=== PATIENT | female | born 1980 ===

== ENCOUNTER 2021-06-01 11:11 | Emergency (ER) | payer OTHER, SELFPAY ==
--- NOTE | ~2021-06-01 | XR_ITS ---
EXAMINATION: XR ELBOW, LEFT CLINICAL INFORMATION: Pain COMPARISON: None TECHNIQUE: AP, lateral, and oblique views of the left elbow. FINDINGS: The bones and soft tissues are normal. No fracture or joint effusion. Alignment is anatomic. Joint spaces are maintained. XR/XR elbow LT 2V IMPRESSION: Normal left elbow.
--- NOTE | ~2021-06-01 | US_ITS ---
EXAMINATION: US VENOUS ULTRASOUND WITH DOPPLER LOWER EXTREMITY, LEFT CLINICAL INFORMATION: Swelling. Left calf pain. COMPARISON: None TECHNIQUE: Ultrasound of the deep veins is performed from the hip to the calf with compression sonography and color and pulse Doppler assessment. Spectral analysis with color-flow imaging is performed. FINDINGS: There is normal venous compression and respiratory variation and augmented flow. The visualized common femoral vein, superficial femoral vein, profunda femoral vein, popliteal vein, and the trifurcation region shows no evidence of deep venous thrombosis. There is no significant popliteal fossa cyst. The contralateral right common femoral vein is patent. US/US venous duplex LE LT IMPRESSION: No DVT demonstrated in the left lower extremity.
--- NOTE | ~2021-06-01 | XR_ITS ---
EXAMINATION: XR FOOT, LEFT CLINICAL INFORMATION: Pain COMPARISON: None TECHNIQUE: AP, lateral, and oblique views of the left foot. FINDINGS: There is no evidence of acute fracture or dislocation of the left foot. There is mild soft tissues swelling seen overlying the dorsum of the navicular cuneiform joint with what may be a small erosion or subchondral cyst about the dorsum of the navicular. Small calcaneal spurs noted site of insertion of the Achilles tendon. There is some mild degenerative sclerosis and spurring about the talonavicular joint. XR/XR foot LT min 3V IMPRESSION: Mild degenerative change of the tarsal bones with mild soft tissue swelling seen overlying the region adjacent to erosions or subchondral cyst involving the dorsal aspect of the navicular. Small Achilles calcaneal spur.
[2021-06-01 12:45] VITALS: BP 142/85; PULSE 78; RESP 19; TEMP 36.1; O2SAT 99; BMI 24.5
--- NOTE | 2021-06-01 15:32 | ED_ITS ---
HPI - Extremity Problem General Chief complaint: Extremity Injury, Upper Stated complaint: Swollen l ankle/ l arm pain Time Seen by Provider: 06/01/21 15:00 Source: patient Mode of arrival: ambulatory Limitations: no limitations History of Present Illness HPI Narrative: 41-year-old female presenting to the emergency department with left calf, ankle / foot pain and left elbow pain x2 weeks. Patient denies any trauma to these extremities. She tells me that her left elbow pain feels like her typical tennis elbow, she has a history of it at times it becomes inflamed and bothers her. She tells me that she has been experiencing swelling to her left lower extremity and pain. She tells me she is currently on Depo-Provera. She denies long flights, or travel. She tells me that the pain is intermittent in nature and she describes as a dull aching pain to the left lower extremity. She denies shortness of breath, chest pain, nausea, vomiting, abdominal pain, headache, vision changes, dizziness. No history of DVT or PE. No recent hospitalization or illness. MD Complaint: extremity pain and extremity swelling Onset (ago): week(s) (2) Pain Consistency: intermittent Location: left Quality: aching and dull Radiation: none Relieving factors: nothing Exacerbating factors: nothing Associated symptoms: denies other symptoms Related Data Previous Rx's Medication Instructions Recorded cyclobenzaprine 10 mg tablet 10 mg PO BEDTIME PRN #7 tab 06/01/21 prednisone 20 mg tablet 40 mg PO DAILY 5 Days #10 tab 06/01/21 Allergies Allergy/AdvReac Type Severity Reaction Status Date / Time ibuprofen [From MOTRIN] Allergy Unknown HIVES Unverified 01/29/20 15:56 shrimp Allergy Unknown SWELLING Unverified 01/29/20 15:56 Motrin Allergy Unknown Uncoded 09/28/11 00:00 Review of Systems Verdana 4l Review of Systems: Verdana 4d Verdana 4d Constitutional : No Weight loss, No Fever, No Chills, No Fatigue, No Malaise ENT/Mouth : No sore throat, No Rhinorrhea Eyes: No Eye Pain, No Swelling, No Redness Cardiovascular : No Chest Pain, No SOB, No Dyspnea on Exertion, No OrthopneaOrthopnea, No Edema, No Palpitations Respiratory : No Cough, No Sputum, No Wheezing Gastrointestinal : No Nausea, No Vomiting, No Diarrhea, No Constipation, No abdominal Pain, No Hematochezia, No Melena Genitourinary : No Dysuria, No Urinary Frequency, No Hematuria, Musculoskeletal : + joint pain, No Myalgias, + Joint Swelling Skin : No Skin Lesions, No rash Neuro : No Weakness, No Numbness, No Dizziness, No Headache All other systems reviewed and are negative Yes all other systems are reviewed and are negative [facility] Social History Social History Advance Directives: No Advance Directives Information Provided: Yes Patient : No Physical Exam Verdana 4l Vital Signs: Verdana 4d Verdana 4d Vital Signs: Verdana 4d Verdana 4Bd Last Vital Signs Verdana 4d R And D Lab Technician New 4d R And D Lab Technician New 4d Temp 97 F 06/01/21 12:45 R And D Lab Technician New 4d Pulse 78 06/01/21 12:45 R And D Lab Technician NewNew 4d Resp 19 06/01/21 12:45 BP 142/85 H 06/01/21 12:45 Pulse Ox 99 06/01/21 12:45 BMI result Body Mass Index 24.5 VSS Appearance: Alert.? Oriented X3.? No acute distress.? Head: Normocephalic, atraumatic, no step-offs or deformities Eyes: Pupils equal, round and reactive to light.? ENT: Pharynx normal.? Neck: Normal inspection.? Neck supple.? CVS: Normal heart rate and rhythm.? Pulses normal.? Respiratory: No respiratory distress.? Breath sounds normal.? Abdomen: Soft and nontender.? Skin: Skin warm and dry.? Normal skin color.? Normal skin turgor.? Extremities:+ swelling to LLE. Normal RLE.? No calf ttp. 5/5 strength to bilateral upper and lower extremities w/ full ROM, no point tenderness. Back: No midline tenderness, no C-spine tenderness, full range of motion, no CVA tenderness bilaterally Neuro: Oriented X 3.? No motor deficit.? No sensory deficit. Course Reevaluation(s) Reevaluation #1: X-ray of left elbow negative. X-ray of left foot significant for subchondral cyst. Ultrasound of the left lower extremity without DVT. Unlikley septic joint Swelling likely secondary to arthritis. Another differential includes gout. I will discharge patient home with NSAIDs, steroids and muscle relaxers. Time: 16:04 MDM - Extremity (Nontraumatic) MDM Narrative Medical decision making narrative: 1537 41 yo f no significant pmhx presents with L elbow pain, and LLE pain and swelling X1 week PE swelling to LLE Plan- US of LLE r/o DVT, xray. PE unlikley - No hypoxia, tachycardia, tachypnea or shortness of breath. Imaging Data Venous US: Attestation: I personally reviewed and interpreted this imaging study as follows: Radiologist's impression: FINDINGS: There is normal venous compression and respiratory variation and augmented flow. The visualized common femoral vein, superficial femoral vein, profunda femoral vein, popliteal vein, and the trifurcation region shows no evidence of deep venous thrombosis. ? There is no significant popliteal fossa cyst. The contralateral right common femoral vein is patent. US/US venous duplex LE LT IMPRESSION: No DVT demonstrated in the left lower extremity. Critical Care Time Critical Care Time Critical Care Time: No Discharge Plan Discharge Clinical Impression: Arthritis, Subchondral cyst, Left tennis elbow Patient Disposition: Home, Self-Care Instructions: Swollen Ankle Joint (ED) Additional Instructions: Take your medications as prescribed. If you were prescribed antibiotics today, it is important that you take your medication to their entirety, do not skip any doses, do not finish them early. Follow-up with your primary care provider this week. Take ibuprofen every 6 hours, Tylenol every 4 as needed for pain. Return to the emergency department with new or worsening symptoms. In case of emergency call 911 Prescriptions: New cyclobenzaprine 10 mg tablet 10 mg PO BEDTIME PRN (Reason: muscle spasm) Qty: 7 RF: 0 prednisone 20 mg tablet 40 mg PO DAILY 5 Days Qty: 10 RF: 0 Referrals: Physician,None [Primary Care Provider] - 2 days Stand Alone Forms: Work/School Release
== END 2021-06-01 16:22 | disposition home or self-care (01) ==
PROVIDERS: Emergency Provider Emergency Medicine
DX: M77.12 Lateral epicondylitis, left elbow (principal); M79.672 Pain in left foot; M25.522 Pain in left elbow; R60.0 Localized edema; Z79.899 Other long term (current) drug therapy
CPT/HCPCS: 73070; 73630; 93971; 99283; 99284

== ENCOUNTER 2021-09-08 07:26 | Emergency (ER) | payer OTHER, SELFPAY ==
[2021-09-08 07:30] VITALS: BP 110/72; PULSE 90; RESP 20; TEMP 37.2; O2SAT 98; BMI 24.9
[2021-09-08 08:00] VITALS: BP 110/72; PULSE 90; RESP 20; TEMP 37.2; O2SAT 98
--- NOTE | 2021-09-08 08:00 | ED_ITS ---
HPI - Nausea/Vomiting/Diarrhea General Chief complaint: General Medical Stated complaint: covid + fever vomiting Time Seen by Provider: 09/08/21 07:58 Source: patient Mode of arrival: ambulatory Limitations: no limitations History of Present Illness MD elicited complaint: nausea, vomiting, diarrhea and other (dizziness, weaknes s, feels fatigued - had fevers at the beginning of the weak) Pertinent past history: other (unvaccinated) Onset (ago): day(s) (6) Description of vomiting: watery and bilious Associated nausea: Yes Associated abdominal pain: No Location of pain: other (has body aches) Pain consistency: intermittent Severity: moderate Quality: aching and dull Exacerbating factors: eating and movement Relieving factors: none Context: other (symptoms of COVID started Sunday AM, test Sunday was positive) Associated symptoms: myalgias, fever/chills, loss of appetite, malaise, nausea/vomiting, weakness and fatigue Related Data Previous Rx's Medication Instructions Recorded cyclobenzaprine 10 mg tablet 10 mg PO BEDTIME PRN #7 tab 06/01/21 prednisone 20 mg tablet 40 mg PO DAILY 5 Days #10 tab 06/01/21 ondansetron 4 mg disintegrating 4 mg PO Q8H PRN #20 tab 09/08/21 tablet Allergies Allergy/AdvReac Type Severity Reaction Status Date / Time ibuprofen [From MOTRIN] Allergy Unknown HIVES Unverified 01/29/20 15:56 shrimp Allergy Unknown SWELLING Unverified 01/29/20 15:56 Motrin Allergy Unknown Uncoded 09/28/11 00:00 Review of Systems Review of Systems: Constitutional : No Weight loss, pos Fever, pos Chills ENT/Mouth : No sore throat, No Rhinorrhea Eyes: No Swelling, No Redness Cardiovascular : No Chest Pain, No SOB, NoEdema Respiratory : No Cough, No Sputum, No Wheezing Gastrointestinal : Positive Nausea, Positive Vomiting, positive Diarrhea, no abdominal Pain, No Hematochezia, No Melena Genitourinary : No Dysuria, No Urinary Frequency, No Hematuria, No Urgency Musculoskeletal : No joint pain, No Myalgias, No Joint Swelling Skin : No Skin Lesions, No rash Neuro : pos Weakness, No Numbness, pos Dizziness, No Headache Psych : No Anxiety/Panic, No Depression Heme/Lymph: No Bruising, No Lymphadenopathy Endocrine : No Polyuria, No Polydipsia All other systems reviewed and are negative. Gastrointestinal: Gastrointestinal: Reports nausea PMFSH Past Medical History Attestation statement: The following information was validated with the patient. Medical History No known health problems Social History Social History (Updated 09/08/21 @ 08:20 by Balbina Ledbetter DO) Patient Tobacco Use Status: Never used Tobacco Smoked in Last 30 Days: No Use of substances other than those prescribed or required for medical reasons: No Advance Directives: No Advance Directives Information Provided: No Patient : No Physical Exam Vital Signs: Vital Signs: Last Vital Signs Temp 98.4 F 09/08/21 08:19 Pulse 82 09/08/21 08:19 Resp 18 09/08/21 08:19 BP 110/80 09/08/21 08:19 Pulse Ox 99 09/08/21 08:19 BMI result Body Mass Index 24.9 Appearance: Alert. Oriented X3. No acute distress. Eyes: Pupils equal, round and reactive to light. ENT: Pharynx mildly dry MM Neck: Normal inspection. Neck supple. CVS: Normal heart rate and rhythm. Pulses normal. Respiratory: No respiratory distress. Breath sounds normal. Abdomen: Soft and nontender. Skin: Skin warm and dry. Normal skin color. mild skin turgor. Extremities: No lower extremity edema. No calf ttp Neuro: Oriented X 3. No motor deficit. No sensory deficit. Course Course Course Narrative: tolerating PO labs stable does not meet criteria for gothams - no risk factors healthy day 6 of symptoms mild bump in LFTs likely viral MDM - Nausea/Vomiting/Diarrhea MDM Narrative Medical decision making narrative: 41 yo female with no PMH here unvaccinated COVID symptoms started Sunday - tested positive on Sunday has had fevers, chills, body aches, n/v/d - she cannot keep anything down and feels weak and dizzy. She will need labs, IVF x 2L, zofran and COVID/flu testing. Dispo per results and improvement. Will review gothams form for any treatment but she is at day 6 of symptoms. Lab Data Result diagrams: 09/08/21 08:25 09/08/21 08:25 Labs: Lab Results 04/09/08/21 09/08/21 Range/Units 08:22 08:22 08:25 WBC 4.7 L (4.8-10.8) X10*3/uL RBC 4.54 (4.20-5.50) X10*6/uL Hgb 14.1 (12.0-16.0) g/dl Hct 41.3 (37.0-47.0) % MCV 91.0 (80.0-98.0) fL MCH 31.1 (27.0-33.0) pg MCHC 34.1 (31.0-35.0) g/dl RDW 13.3 (11.0-16.0) % Plt Count 281 (160-400) X10*3/uL MPV 9.7 (9.4-12.3) fL Immature Gran % (Auto) Cancelled Neut % (Auto) Cancelled Lymph % (Auto) Cancelled [place] % (Auto) Cancelled Eos % (Auto) Cancelled Baso % (Auto) Cancelled Lymph # (Auto) Cancelled [place] # (Auto) Cancelled Eos # (Auto) Cancelled Baso # (Auto) Cancelled Abs Immat Gran (auto) Cancelled Absolute Neuts (auto) Cancelled Absolute Nucleated RBC 0.000 (0.0-0.012) X10*3/uL Nucleated RBC % (auto) 0.0 (0.0-0.2) /100WBC Neutrophils % (Manual) 69 (45-73) % Band Neutrophils % 3 (3-5) % Lymphocytes % (Manual) 19 L (20-40) % Atypical Lymphs % (Man) 3 (0-6) % Monocytes % (Manual) 6 (2-11) % Abs Neuts (Manual) 3.4 (2.0-8.3) X10*3/uL Lymphocytes # (Manual) 0.9 L (1.2-4.9) X10*3/uL Atyp Lymphs # (Manual) 0.1 x10*3/uL Monocytes # (Manual) 0.3 (0.1-1.2) X10*3/uL Platelet Estimate NORMAL (NORMAL) Plt Morphology Comment NORMAL RBC Morphology NORMAL Sodium (135-145) mmol/L Potassium (3.3-5.1) mmol/L Chloride (96-108) mmol/L Carbon Dioxide (22-29) mmol/L Anion Gap (12-20) BUN (9-16) mg/dL Creatinine (0.5-1.4) mg/dL Estim Creat Clear Calc Estimated GFR Random Glucose (60-115) mg/dL Calcium (8.4-10.2) mg/dL Magnesium (1.6-2.6) mg/dL Total Bilirubin (0.0-1.0) mg/dL Direct Bilirubin (0.0-0.5) mg/dL AST (5-31) U/L ALT (0-31) U/L Alkaline Phosphatase (39-117) U/L Total Protein (6.5-8.0) g/dL Albumin (3.5-5.0) g/dL Lipase (8-78) U/L Beta HCG, Quant mIU/mL COVID-19 (NIDIA) Positive A (Negative) COVID-19 Clin Com See Note Influenza Type A (FIORELLA) Negative (Negative) Influenza Type B (FIORELLA) Negative (Negative) Influenza A & B Note See Note 09/08/21 Range/Units 08:25 WBC (4.8-10.8) X10*3/uL RBC (4.20-5.50) X10*6/uL Hgb (12.0-16.0) g/dl Hct (37.0-47.0) % MCV (80.0-98.0) fL MCH (27.0-33.0) pg MCHC (31.0-35.0) g/dl RDW (11.0-16.0) % Plt Count (160-400) X10*3/uL MPV (9.4-12.3) fL Immature Gran % (Auto) Neut % (Auto) Lymph % (Auto) [place] % (Auto) Eos % (Auto) Baso % (Auto) Lymph # (Auto) [place] # (Auto) Eos # (Auto) Baso # (Auto) Abs Immat Gran (auto) Absolute Neuts (auto) Absolute Nucleated RBC (0.0-0.012) X10*3/uL Nucleated RBC % (auto) (0.0-0.2) /100WBC Neutrophils % (Manual) (45-73) % Band Neutrophils % (3-5) % Lymphocytes % (Manual) (20-40) % Atypical Lymphs % (Man) (0-6) % Monocytes % (Manual) (2-11) % Abs Neuts (Manual) (2.0-8.3) X10*3/uL Lymphocytes # (Manual) (1.2-4.9) X10*3/uL Atyp Lymphs # (Manual) x10*3/uL Monocytes # (Manual) (0.1-1.2) X10*3/uL Platelet Estimate (NORMAL) Plt Morphology Comment RBC Morphology Sodium 142 (135-145) mmol/L Potassium 3.7 (3.3-5.1) mmol/L Chloride 107 (96-108) mmol/L Carbon Dioxide 24 (22-29) mmol/L Anion Gap 15 (12-20) BUN 14 (9-16) mg/dL Creatinine 0.89 (0.5-1.4) mg/dL Estim Creat Clear Calc 77.6 Estimated GFR > 60 Random Glucose 124 H (60-115) mg/dL Calcium 9.0 (8.4-10.2) mg/dL Magnesium 1.9 (1.6-2.6) mg/dL Total Bilirubin 0.7 (0.0-1.0) mg/dL Direct Bilirubin 0.5 (0.0-0.5) mg/dL AST 81 H (5-31) U/L ALT 83 H (0-31) U/L Alkaline Phosphatase 65 (39-117) U/L Total Protein 7.0 (6.5-8.0) g/dL Albumin 3.9 (3.5-5.0) g/dL Lipase 55 (8-78) U/L Beta HCG, Quant < 2 mIU/mL COVID-19 (INDIA) (Negative) COVID-19 Clin Com Influenza Type A (FIORELLA) (Negative) Influenza Type B (FIORELLA) (Negative) Influenza A & B Note Discharge Plan Discharge Clinical Impression: COVID-19, Elevated liver function tests Patient Disposition: Home, Self-Care Instructions: COVID-19 (Coronavirus Disease 2019) (ED) Additional Instructions: return to ED for any worsening symptoms or concerns drink plenty of fluids minor increase in liver enzymes likely related to COVID - this does happen repeat with your doctor in 1 week Prescriptions: New ondansetron 4 mg tablet,disintegrating 4 mg PO Q8H PRN (Reason: nausea and vomiting) Qty: 20 0RF No Action cyclobenzaprine 10 mg tablet 10 mg PO BEDTIME PRN (Reason: muscle spasm) Qty: 7 0RF prednisone 20 mg tablet 40 mg PO DAILY 5 Days Qty: 10 0RF Stand Alone Forms: Work/School Release
[2021-09-08 08:19] VITALS: BP 110/80; PULSE 82; RESP 18; TEMP 36.9; O2SAT 99
[2021-09-08] MEDS: Lactated Ringers 1,000 ML 999 ML IV ×2 (08:31)
[2021-09-08] MEDS: ondansetron HCL 4 MG/2 ML VIAL IVPUSH (08:31)
[2021-09-08 08:47] LABS: Hematocrit 41.3 % (37.0-47.0); Hemoglobin 14.1 g/dl (12.0-16.0); Mean Corpuscular HGB Conc 34.1 g/dl (31.0-35.0); Mean Corpuscular Hemoglobin 31.1 pg (27.0-33.0); Mean Platelet Volume 9.7 fL (9.4-12.3); Platelet Count 281 X10*3/uL (160-400); Red Blood Count 4.54 X10*6/uL (4.20-5.50); Red Cell Distribution Width 13.3 % (11.0-16.0); White Blood Count 4.7 X10*3/uL (4.8-10.8)
[2021-09-08 08:51] LABS: Alanine Aminotransferase 83 U/L (0-31); Albumin Level 3.9 g/dL (3.5-5.0); Alkaline Phosphatase 65 U/L (39-117); Anion Gap 15 (12-20); Aspartate Amino Transferase 81 U/L (5-31); Bilirubin Direct 0.5 mg/dL (0.0-0.5); Bilirubin Total 0.7 mg/dL (0.0-1.0); Blood Urea Nitrogen 14 mg/dL (9-16); Carbon Dioxide 24 mmol/L (22-29); Chloride 107 mmol/L (96-108); Creatinine Clr Calc Pharmacy 77.6; Estimated Glomerular Filt Rate > 60; Glucose Random 124 mg/dL (60-115); Lipase 55 U/L (8-78); Magnesium 1.9 mg/dL (1.6-2.6); Potassium 3.7 mmol/L (3.3-5.1); Sodium 142 mmol/L (135-145)
[2021-09-08 08:53] LABS: IDNOW Serial# 16C4AD1C; Influenza A Negative (Negative); Influenza B2 Negative (Negative)
[2021-09-08 08:55] LABS: COVID-19 Test Positive (Negative); IDNOW Serial# 55D5AD1C
[2021-09-08 08:57] LABS: HCG Quantitative < 2 mIU/mL
[2021-09-08 09:32] LABS: Atypical Lymph Absolute Manual 0.1 x10*3/uL; Atypical Lymphs Percent Manual 3 % (0-6); Band Neutrophils Percent 3 % (3-5); Lymphocytes Absolute Manual 0.9 X10*3/uL (1.2-4.9); Lymphocytes Percent Manual 19 % (20-40); Monocytes Absolute Manual 0.3 X10*3/uL (0.1-1.2); Monocytes Percent Manual 6 % (2-11); Neutrophils Absolute Manual 3.4 X10*3/uL (2.0-8.3); Neutrophils Percent Manual 69 % (45-73)
[2021-09-08 09:34] LABS: Platelet Estimate NORMAL (NORMAL); Platelet Morphology Comment NORMAL; RBC Morphology NORMAL
== END 2021-09-08 10:22 | disposition home or self-care (01) ==
PROVIDERS: Emergency Provider Emergency Medicine
DX: U07.1 COVID-19 (principal); R94.5 Abnormal results of liver function studies
CPT/HCPCS: 80048; 80076; 83690; 83735; 84702; 85007; 85025; 85027; 87502; 87635; 96361; 96374; 99284; J2405

== ENCOUNTER 2022-05-22 08:10 | Emergency (ER) | payer OTHER, SELFPAY ==
--- NOTE | 2022-05-22 | ECG_ITS ---
Test Reason : CHEST PAIN Blood Pressure : / mmHG Vent. Rate : 072 BPM Atrial Rate : 072 BPM P-R Int : 154 ms QRS Dur : 074 ms QT Int : 374 ms P-R-T Axes : 075 060 055 degrees QTc Int : 409 ms Normal sinus rhythm with sinus arrhythmia Normal ECG When compared to the previous EKG of No significant changes seen Referred By: Generic ED Physician Electronically Signed By:Hayder Dockery
--- NOTE | ~2022-05-22 | XR_ITS ---
EXAMINATION: XR CHEST CLINICAL INFORMATION: Right-sided chest wall pain COMPARISON: None TECHNIQUE: 2 views of the chest were obtained. FINDINGS: Lungs are well-inflated and clear. Trachea is midline in position. No interstitial disease, consolidation or mass. No pleural effusion or pneumothorax. Cardiac silhouette and pulmonary vessels are normal in size. The mediastinum and naseem have normal contour. The visualized bones, and upper abdomen, are unremarkable. XR/XR chest 2V IMPRESSION: No acute cardiopulmonary abnormality.
[2022-05-22 08:13] VITALS: BP 147/85; PULSE 98; RESP 17; TEMP 36.6; O2SAT 98; BMI 25.4
--- NOTE | 2022-05-22 08:42 | PC.NURSE ---
Patient presents with report of right shoulder chest pain worse with activity denies any recent trauma or cardiac history does have familial cardiac history. Chest pain not exacerbated with palpation or inspiration/expiration. Also reports leg soreness itching multiple bruises noted denies any recent changes in diet or any environmental issues. Patient denies smoking is on oral control. IV access obtained labs collected and sent EKG obtained. Will CTM
[2022-05-22 08:44] LABS: MANUAL DIFF FLAG NO
[2022-05-22 08:47] LABS: Basophils Absolute Auto 0.1 X10*3/uL (0.0-0.2); Basophils Percent Auto 0.7 % (0-2); Eosinophils Absolute Auto 0.3 X10*3/uL (0.0-0.4); Eosinophils Percent Auto 4.4 % (0-4); Hematocrit 39.9 % (37.0-47.0); Hemoglobin 13.7 g/dl (12.0-16.0); Imm Gran Abs Auto 0.01 X10*3/uL (0.00-0.03); Imm Gran Pct Auto 0.1 % (0.0-0.4); Lymphocytes Absolute Auto 2.8 X10*3/uL (1.2-4.9); Lymphocytes Percent Auto 40.3 % (20-40); Mean Corpuscular HGB Conc 34.3 g/dl (31.0-35.0); Mean Corpuscular Hemoglobin 31.1 pg (27.0-33.0); Mean Corpuscular Volume 90.7 fL (80.0-98.0); Mean Platelet Volume 9.2 fL (9.4-12.3); Monocytes Absolute Auto 0.6 X10*3/uL (0.1-1.2); Monocytes Percent Auto 8.3 % (2-11); Neutrophils Absolute Auto 3.2 x10*3/uL (2.0-8.3); Neutrophils Percent Auto 46.2 % (45-73); Platelet Count 381 X10*3/uL (160-400)
--- NOTE | 2022-05-22 08:53 | ED_ITS ---
HPI - General Adult General Chief complaint: General Medical Stated complaint: R neck/chest pain/Leg bruising Time Seen by Provider: 05/22/22 08:44 Related Data Previous Rx's Medication Instructions Recorded cyclobenzaprine 10 mg tablet 10 mg PO BEDTIME PRN muscle spasm 06/01/21 #7 tabs prednisone 20 mg tablet 40 mg PO DAILY 5 days #10 tabs 06/01/21 ondansetron 4 mg disintegrating 4 mg PO Q8H PRN nausea and 09/08/21 tablet vomiting #20 tabs prednisone 20 mg tablet 60 mg PO DAILY Asthma 5 days #15 05/22/22 tabs Allergies Allergy/AdvReac Type Severity Reaction Status Date / Time ibuprofen [From MOTRIN] Allergy Unknown HIVES Unverified 01/29/20 15:56 shrimp Allergy Unknown SWELLING Unverified 01/29/20 15:56 Motrin Allergy Unknown Uncoded 09/28/11 00:00 PMFSH Past Medical History Medical History No known health problems Social History Social History (Updated 09/08/21 @ 08:20 by Minda Ledbetter DO) Alcohol intake: current Alcohol intake frequency: does not drink Patient Tobacco Use Status: Never used Tobacco Smoked in Last 30 Days: No Advance Directives: No Advance Directives Information Provided: No Physical Exam ED Vital Signs: Vital Signs - 24 hr 05/22/22 08:13 05/22/22 11:15 Temperature 98 F 97.8 F Pulse Rate 98 74 Respiratory Rate 17 18 Blood Pressure 147/85 H 124/88 Pulse Oximetry 98 97 Oxygen Delivery Method Room Air Room Air BMI result Body Mass Index 25.4 Medications Administered Discontinued Medications Generic Name Dose Route Start Last Admin Trade Name Freq PRN Reason Stop Dose Admin Acetaminophen 650 mg 05/22/22 10:57 05/22/22 11:07 Acetaminophen 325 Mg Tablet PO 05/22/22 10:58 650 mg ONCE ONE Administration Prednisone 60 mg 05/22/22 10:57 05/22/22 11:07 Prednisone 20 Mg Tablet PO 05/22/22 10:58 60 mg ONCE ONE Administration Medical Decision Making Medical Decision Making MDM Narrative: patient looks well complaining of right-sided chest pain and has noted bruising to both legs and leg she has not recall any injury or cause this I will check labs including platelets to make sure there was no issues give patient some Tylenol as well as prednisone for pain. Do not think she has a blood clot as she is not hypoxic or tachycardic he has no history of PE or risk factors she otherwise looks well. 1145 XR and labs look normal. Patient has normal platelets admits to itching. No pneumonia with right sided chest pain that I feel is musculoskeletal. i will give tylenola nd prednisone and send home with prednisone. Differential Diagnosis Differential Diagnoses: The differential diagnosis associated with the presentation includes Pulmonary embolism anemia low platelets bruising unknown trauma musculoskeletal pain or pneumonia. Admission/Observation Consideration of admission/observation: Escalation of care including admission/observation considered Lab Data MDM Lab Attestation statement: I reviewed the patient's lab results. 05/22/22 08:39 05/22/22 08:39 Labs: Lab Results 05/22/22 05/22/22 Range/Units 08:39 08:39 WBC 7.0 (4.8-10.8) X10*3/uL RBC 4.40 (4.20-5.50) X10*6/uL Hgb 13.7 (12.0-16.0) g/dl Hct 39.9 (37.0-47.0) % MCV 90.7 (80.0-98.0) fL MCH 31.1 (27.0-33.0) pg MCHC 34.3 (31.0-35.0) g/dl RDW 13.0 (11.0-16.0) % Plt Count 381 D (160-400) X10*3/uL MPV 9.2 L (9.4-12.3) fL Immature Gran % (Auto) 0.1 (0.0-0.4) % Neut % (Auto) 46.2 (45-73) % Lymph % (Auto) 40.3 H (20-40) % [place] % (Auto) 8.3 (2-11) % Eos % (Auto) 4.4 H (0-4) % Baso % (Auto) 0.7 (0-2) % Lymph # (Auto) 2.8 (1.2-4.9) X10*3/uL [place] # (Auto) 0.6 (0.1-1.2) X10*3/uL Eos # (Auto) 0.3 (0.0-0.4) X10*3/uL Baso # (Auto) 0.1 (0.0-0.2) X10*3/uL Abs Immat Gran (auto) 0.01 (0.00-0.03) X10*3/uL Absolute Neuts (auto) 3.2 (2.0-8.3) x10*3/uL Absolute Nucleated RBC 0.000 (0.0-0.012) X10*3/uL Nucleated RBC % (auto) 0.0 (0.0-0.2) /100WBC Sodium 139 (135-145) mmol/L Potassium 3.8 (3.3-5.1) mmol/L Chloride 110 H (96-108) mmol/L Carbon Dioxide 21 L (22-29) mmol/L Anion Gap 12 (12-20) BUN 9 (9-16) mg/dL Creatinine 0.92 (0.5-1.4) mg/dL Estim Creat Clear Calc 75.0 Estimated GFR > 60 Fasting Glucose 106 H (60-99) mg/dL Calcium 9.3 (8.4-10.2) mg/dL Independent Interpretation I performed an independent interpretation of an: EKG Interpretation: rate 72 normal sinus rhythm normal intervals no signs ischemia Discharge Plan Discharge Clinical Impression: Abnormal bruising, Acute chest wall pain Patient Disposition: Home, Self-Care Instructions: Noncardiac Chest Pain (ED), Ecchymosis (ED) Additional Instructions: Please call to follow up with your doctor. If you have any other concerns please return to the ED. Prescriptions: New prednisone 20 mg tablet 60 mg PO DAILY 5 Days Qty: 15 0RF No Action cyclobenzaprine 10 mg tablet 10 mg PO BEDTIME PRN (Reason: muscle spasm) Qty: 7 0RF prednisone 20 mg tablet 40 mg PO DAILY 5 Days Qty: 10 0RF ondansetron 4 mg tablet,disintegrating 4 mg PO Q8H PRN (Reason: nausea and vomiting) Qty: 20 0RF
[2022-05-22 09:01] LABS: Anion Gap 12 (12-20); Blood Urea Nitrogen 9 mg/dL (9-16); Calcium 9.3 mg/dL (8.4-10.2); Carbon Dioxide 21 mmol/L (22-29); Chloride 110 mmol/L (96-108); Estimated Glomerular Filt Rate > 60; Glucose Fasting 106 mg/dL (60-99); Potassium 3.8 mmol/L (3.3-5.1); Sodium 139 mmol/L (135-145)
--- NOTE | 2022-05-22 09:50 | PC.NURSE ---
Patient resting comfortably no distress noted awaiting x ray will CTM
[2022-05-22] MEDS: Acetaminophen 325 MG TABLET 650 MG PO (11:07)
[2022-05-22] MEDS: predniSONE 20 MG TABLET 60 MG PO (11:07)
[2022-05-22 11:15] VITALS: BP 124/88; PULSE 74; RESP 18; TEMP 36.6; O2SAT 97
--- NOTE | 2022-05-22 11:46 | PC.NURSE ---
Awaiting dispo will CTM.
== END 2022-05-22 12:10 | disposition home or self-care (01) ==
PROVIDERS: Emergency Provider Student in an Organized Health Care Education/Training Program
DX: R07.89 Other chest pain (principal); R58 Hemorrhage, not elsewhere classified
CPT/HCPCS: 36415; 71046; 80048; 85025; 93005; 99283; 99284

== ENCOUNTER 2024-01-04 07:32 | Emergency (ER) | payer OTHER, SELFPAY ==
[2024-01-04 07:48] VITALS: BP 112/74; PULSE 118; RESP 18; TEMP 37.2; O2SAT 98
--- NOTE | 2024-01-04 07:58 | ED_ITS ---
HPI - General Adult General Chief complaint: General Medical Stated complaint: fever Time Seen by Provider: 01/04/24 07:57 Source: patient and old records reviewed Mode of arrival: ambulatory Limitations: no limitations History of Present Illness ED Provider: AMBERLY VERNON narrative: 43 yo female with no sig PMH here with c/o 2 days of body aches, chills, fevers that break with tylenol, nausea, headaches this feels the same as when she had COVID 2 years ago. She denies chest pain/dyspnea. She took covid tests at home that are negative. She is vaccinated. She notes she has not traveled or had sick contacts. MD complaint: viral syndrome Onset (ago): day(s) (2) Location: head Radiation: non-radiation Severity: moderate Quality: aching Pain Consistency: constant Relieving factors: medication Exacerbating factors: none Associated symptoms: fever/chills, headaches, loss of appetite, malaise and weakness Treatments prior to arrival: other Related Data Previous Rx's ?Medication ?Instructions ?Recorded cyclobenzaprine 10 mg tablet 10 mg PO BEDTIME PRN muscle spasm 06/01/21 #7 tabs prednisone 20 mg tablet 40 mg (2 x 20 mg) PO DAILY 5 days 06/01/21 #10 tabs ondansetron 4 mg disintegrating 4 mg PO Q8H PRN nausea and 09/08/21 tablet vomiting #20 tabs prednisone 20 mg tablet 60 mg (3 x 20 mg) PO DAILY Asthma 05/22/22 5 days #15 tabs ondansetron 4 mg disintegrating 4 mg PO Q8H PRN nausea and 01/04/24 tablet vomiting #20 tabs Allergies Allergy/AdvReac Type Severity Reaction Status Date / Time ibuprofen [From MOTRIN] Allergy Unknown HIVES Verified 01/04/24 07:51 shrimp Allergy Unknown SWELLING Verified 01/04/24 07:51 Review of Systems Review of Systems: Constitutional : No Fever, pos Chills, pos Fatigue ENT/Mouth : No sore throat, No Rhinorrhea Eyes: No Eye Pain, No Swelling, No Redness Cardiovascular : No Chest Pain, No SOB, No Dyspnea on Exertion Respiratory : No Cough, No Sputum Gastrointestinal : No Nausea, No Vomiting, No Diarrhea, No abdominal Pain Genitourinary : No Dysuria, No Urinary Frequency, No Hematuria, Musculoskeletal : No joint pain, pos Myalgias, No Joint Swelling Skin : No Skin Lesions, No rash Neuro : pos Weakness, No Numbness, No Dizziness, positive Headache Psych : No Anxiety/Panic, No Depression All other systems reviewed and are negative [facility] Past Medical History Attestation statement: The following information was validated with the patient. Source: old records reviewed Medical History No known health problems Social History Social History Alcohol intake: current Alcohol intake frequency: does not drink Patient Tobacco Use Status: Never used Tobacco Advance Directives: No Advance Directives Information Provided: Yes Do you have a plan to hurt others: No Plan Physical Exam ED Vital Signs: Vital Signs - 24 hr 01/04/24 07:48 Temperature 98.9 F Pulse Rate 118 H Respiratory Rate 18 Blood Pressure 112/74 Pulse Oximetry 98 Oxygen Delivery Method Room Air BMI result Body Mass Index 30.0 Appearance: Alert. Oriented X3. No acute distress. Eyes: Pupils equal, round and reactive to light. ENT: Pharynx normal. Neck: Normal inspection. Neck supple. CVS: Normal heart rate and rhythm. Pulses normal. Respiratory: No respiratory distress. Breath sounds normal. Abdomen: Soft and non-tender. Skin: Skin warm and dry. Normal skin color. Normal skin turgor. Extremities: No lower extremity edema. No calf ttp Neuro: Oriented X 3. No motor deficit. No sensory deficit. Medical Decision Making Medical Decision Making [facility] Narrative: 43 yo female no sig PMH here with viral constellation of symptoms but no CP/SOB and she denies travel or exposure at this time suspect COVID. She is able to tolerate PO no hypoxia she is not toxic appearing will obtain viral panel and UA. She is vaccinated. Differential Diagnosis Differential Diagnoses: The differential diagnosis associated with the presentation includes viral syndrome, covid 19 Admission/Observation Consideration of admission/observation: Escalation of care including admission/observation considered not toxic, no hypoxia stable for DC Lab Data [facility] Lab Attestation statement: I reviewed the patient's lab results. Labs: Lab Results 01/04/24 Range/Units 08:13 Urine Color Yellow Urine Appearance Turbid Urine pH 5.5 (5.0-9.0) Ur Specific [place] 1.025 (1.005-1.025) Urine Protein 30 (1+) H (Neg-Trace) mg/dL Urine Glucose (UA) Negative (Negative) mg/dL Urine Ketones Trace (Negative) mg/dL Urine Blood Trace H (Negative) Urine Nitrite Negative (Negative) Ur Leukocyte Esterase Small (1+) H (Negative) Urine RBC 0-2 (0-2) /HPF Urine WBC 11-20 (0-5) /HPF Ur Squamous Epith Cells >20 (0-2) /HPF Urine Bacteria 4+ (None Seen) Hyaline Casts 0-2 (0-2) /LPF Influenza Type A (PCR) NEGATIVE (Negative) Influenza Type B (PCR) NEGATIVE (Negative) RSV RNA Qual (PCR) NEGATIVE (Negative) SARS-CoV-2 RNA (RT-PCR) POSITIVE A (Negative) External Record Review External record reviewed: Outpatient record Prescription Management I considered prescription management with: Antiviral and Other Discharge Plan Discharge Clinical Impression: COVID-19 Patient Disposition: Home, Self-Care Instructions: COVID-19 (Coronavirus Disease 2019) (ED) Additional Instructions: return for worsening symptoms chest pain, trouble breathing you are so short of breath you cannot walk to your own bathroom wear a mask protect others stay hydrated you are vaccinated you can go back to work in 3 days wear a mask for additional 5 days Prescriptions: New ondansetron 4 mg tablet,disintegrating 4 mg PO Q8H PRN (Reason: nausea and vomiting) Qty: 20 0RF No Action cyclobenzaprine 10 mg tablet 10 mg PO BEDTIME PRN (Reason: muscle spasm) Qty: 7 0RF prednisone 20 mg tablet 40 mg PO DAILY 5 Days Qty: 10 0RF ondansetron 4 mg tablet,disintegrating 4 mg PO Q8H PRN (Reason: nausea and vomiting) Qty: 20 0RF prednisone 20 mg tablet 60 mg PO DAILY 5 Days Qty: 15 0RF Stand Alone Forms: Work/School Release Print Language: Telugu
[2024-01-04 08:21] LABS: Appearance Urine Turbid; Color Urine Yellow; Glucose Urine UA Negative (Negative); Leukocyte Esterase Urine Small (1+) (Negative); Nitrite Urine Negative (Negative); PH 5.5 (5.0-9.0); Specific Gravity - Urine 1.025 (1.005-1.025); UMIC TRIGGER UACC YES; Urine Blood Trace (Negative); Urine Ketones Trace mg/dL (Negative); Urine Protein 30 (1+) mg/dL (Neg-Trace)
[2024-01-04 08:30] LABS: Bacteria Urine 4+ (None Seen); Hyaline Casts Urine 0-2 /LPF (0-2); RBC Urine 0-2 /HPF (0-2); Squamous Epithelial Cell Urine >20 /HPF (0-2); UACC Culture Trigger YES
[2024-01-04 09:00] LABS: Influenza A PCR NEGATIVE (Negative); Influenza B PCR NEGATIVE (Negative); Resp Syncy Virus RNA Qual PCR NEGATIVE (Negative); SARS COV2 PCR INHOUSE POSITIVE (Negative)
[2024-01-04 09:18] VITALS: BP 116/72; PULSE 106; RESP 16; TEMP 37.1; O2SAT 98
== END 2024-01-04 09:19 | disposition home or self-care (01) ==
PROVIDERS: Physician Assistant; Emergency Provider Emergency Medicine
DX: U07.1 COVID-19 (principal)
CPT/HCPCS: 0241U; 81001; 87086; 99282; 99283